=== PATIENT | female | born 2000 ===

== ENCOUNTER 2023-09-14 17:02 | Emergency (ER) | payer SELFPAY ==
[2023-09-14 17:57] VITALS: BP 150/81; PULSE 85; RESP 18; TEMP 37; O2SAT 100; BMI 35.7
--- NOTE | 2023-09-14 18:09 | ED.DENTAL ---
HPI - Dental/Oral General Chief complaint: Dental/Oral Stated complaint: right side tooth and head pain Time Seen by Provider: 09/14/23 18:09 Source: patient Mode of arrival: ambulatory Limitations: no limitations History of Present Illness HPI Narrative: 22-year-old female with history of poor dental care prsents today for right lower molar pain that radiates to the right ear intermittently x 3 months. Reports she has not seen a dentist or PCP for a while. No fevers, changes in voice, drooling, or sore throat. No SOB. No dysphagia. Related Data Previous Rx's Medication Instructions Recorded amoxicillin 875 mg-potassium 1 tab PO BID 10 days #20 tabs 09/14/23 clavulanate 125 mg tablet naproxen 500 mg tablet 500 mg PO BID PRN pain #14 tabs 09/14/23 Allergies Allergy/AdvReac Type Severity Reaction Status Date / Time No Known Allergies Allergy Verified 09/14/23 17:57 Review of Systems Review of Systems: Constitutional : No Fever, No Chills ENT/Mouth : No swallowing difficulty, no change in voice, positive dental pain, no jaw pain, no facial swelling Eyes: No Eye Pain, No Swelling Cardiovascular : No Chest Pain, No SOB Respiratory : No Cough, No Sputum Gastrointestinal : No Nausea, No Vomiting, No Diarrhea Genitourinary : No Dysuria Musculoskeletal : No Myalgias Skin : No rash Neuro : No Weakness, No Numbness, No Headache Yes all other systems are reviewed and are negative [facility] Past Medical History Attestation statement: The following information was validated with the patient. Source: old records reviewed and nursing notes reviewed Physical Exam Vital Signs: Vital Signs: Last Vital Signs Temp 98.6 F 09/14/23 17:57 Pulse 85 09/14/23 17:57 Resp 18 09/14/23 17:57 BP 150/81 H 09/14/23 17:57 Pulse Ox 100 09/14/23 17:57 O2 Del Method Room Air 09/14/23 17:57 BMI result Body Mass Index 35.7 vss Appearance: Alert. ?Oriented X3. ?No acute distress. Speaking in full sentences. Controlling secretions well. Head: ?Normocephalic, atraumatic, no step-offs or deformities Eyes: Pupils equal, round and reactive to light. ENT: Pharynx normal. Uvula midline, +Poor dentition throughout. +halitosis. +Fractured right lower back molar. No dental abscess. External ears normal, TMs normal bilaterally and EAC's normal. ?No pain with manipulation of external ears bilaterally. ?No mastoid tenderness. Neck: Normal inspection. ?Neck supple. CVS: Normal heart rate and rhythm. ?Pulses normal. Respiratory: No respiratory distress. ?Breath sounds normal. No stridor. Skin: Skin warm and dry. ?Normal skin color. ?Normal skin turgor. Extremities: No lower extremity edema. ?No calf ttp. ?5/5 strength to bilateral upper and lower extremities Neuro: Oriented X 3. ?No motor deficit. ?No sensory deficit. CN 2-12 intact Course Reevaluation(s) Reevaluation #1: Educated patient on diagnosis and treatment plan, answered all question, patient verbalizes understanding. At this time patient will be discharged home, advised to return with new or worsening symptoms. Educated on worrisome signs and symptoms and when to return. At this time I feel comfortable discharge home. Patient to follow-up with dentist tomorrow Time: 18:13 Medical Decision Making Medical Decision Making MDM Narrative: 22-year-old female presents with dental pain x3 months. At followed by PCP or dentist Physical examPharynx normal. Uvula midline, +Poor dentition throughout. +halitosis. +Fractured right lower back molar. No dental abscess. External ears normal, TMs normal bilaterally and EAC's normal. ?No pain with manipulation of external ears bilaterally. ?No mastoid tenderness. This is likely a fractured lower right molar with overlying caries, poor dentition. No signs of dental abscess, threat to airway, retropharyngeal, peritonsillar abscess. No signs of dental cellulitis, or Klaus's Plan discharge from the waiting room with Augmentin, dental follow-up. Educated patient on diagnosis and treatment plan, answered all question, patient verbalizes understanding. At this time patient will be discharged home, advised to return with new or worsening symptoms. Educated on worrisome signs and symptoms and when to return. At this time I feel comfortable discharge home. Differential Diagnosis Differential Diagnoses: The differential diagnosis associated with the presentation includes This is likely a fractured lower right molar with overlying caries, poor dentition. No signs of dental abscess, threat to airway, retropharyngeal, peritonsillar abscess. No signs of dental cellulitis, or Klaus's Admission/Observation Consideration of admission/observation: Escalation of care including admission/observation considered no indication Tests considered The following testing was considered but not selected: No signs of threat tear where abscess, no indication for CT scan Prescription Management I considered prescription management with: Antibiotic Discharge Plan Discharge Clinical Impression: Toothache Patient Disposition: Home, Self-Care Instructions: Toothache (ED) Additional Instructions: Take your medications as prescribed. If you were prescribed antibiotics today, it is important that you take your medication to their entirety, do not skip any doses, do not finish them early. Follow-up with your primary care provider this week. Return to the emergency department with new or worsening symptoms. Such as fevers, chills, chest pain, shortness of breath, nausea, vomiting, dizziness, headache, vision changes, lethargy In case of emergency call 911 Follow-up with dentist at [facility] call and schedule appointment tomorrow [phone] Prescriptions: New naproxen 500 mg tablet 500 mg PO BID PRN (Reason: pain) Qty: 14 0RF Rx Instructions: Take with food amoxicillin-pot clavulanate 875-125 mg tablet 1 tab PO BID 10 Days Qty: 20 0RF Referrals: Physician,None [Primary Care Provider] - 2 days [facility] [place]] - 1 day [facility] [place] Group] - 1 day
== END 2023-09-14 18:22 | disposition home or self-care (01) ==
PROVIDERS: Emergency Provider Emergency Medicine
DX: K08.9 Disorder of teeth and supporting structures, unspecified (principal)
CPT/HCPCS: 99282; 99283

== ENCOUNTER 2025-07-05 16:19 | Outpatient (REF) | payer SELFPAY ==
--- OUTSIDE RECORDS SUMMARY | 2025-07-05 09:30 | XMS_ITS | Encounter Summary ---
Author Organization [employer] Address [address] [facility] [address] [place] [address] Care Team Providers Care Urban Sociologist Name Role Phone Kaye Oakley MD Primary Care Pro vider Reason for Visit * Reason Comments pap Encounter Details Date Type Department Care Team (Latest Contact Info) Description 07/05/2025 9:30 AM EDT Procedure Visit [facility] [address] [place] [address] Yoanna Forbes CNM [address] [place] [address] Cervical cancer screening (Primary Dx); Encntr screen for infections w sexl mode of transmiss; Family planning counseling Social History Tobacco Use Types Packs/Day Years Used Date Smoking Tobacco: Never Passive Smoke Exposure: Never Smokeless Tobacco: Never Tobacco Cessation:Counseling Given: Not Answered Alcohol Use Standard Drinks/Week Comments Not Currently 0 (1 standard drink = 0.6 oz pur e alcohol) social Depression Answer Date Recorded Patient Health Questionnaire-9 Score 0 06/05/2025 Patient Health Questionnaire-9 Score 0 06/05/2025 Last PHQ-9: Questionnaire Data Not on file 0 06/05/2025 Housing Stability Answer Date Recorded What is your housing situation today? I have madeline sing 06/05/[address] you li ve. Do you have problems with any of the following? None of the above 06/05/2025 Food Insecurity Answer Date Recorded Within the past 12 months, y ou worried that your food would run out before you got money to buy more: Never True 06/05/2025 Within the past 12 months,th e food you bought just didn't last and you didn't have enough money to get more: Never True Transportation Answer Date Recorded In the past 12 months, has l ack of transportation kept you from medical appts, meetings, work or from getting things needed for daily living? No 06/05/2025 Utilities Answer Date Recorded In the past 12 months, has t he electric, gas, oil or water company threatened to shut off services in your home? No 06/05/2025 Depression Answer Date Recorded Patient Health Questionnaire-2 Score 0 06/05/2025 Internet Access Answer Date Recorded Internet Access Q1 Yes 06/05/2025 Internet Access Q2 Not on file 06/05/2025 Comments No Intention Date Recorded No desire to become (finding) 0 07/05/2025 Sex and Gender Information Value Date Recorded Sex Assigned at Female 05/25/2024 10:29 AM EDT Legal Sex Female 12:29 PM EDT Gender Identity Female 05/25/2024 10:29 AM EDT Sexual Orientation Straight 06/05/2025 10 :36 AM EDT documented as of this encounter Last Filed Vital Signs Vital Sign Reading Time Taken Comments Blood Pressure 120/78 07/05/2025 9:54 AM EDT Pulse 90 07/05/2025 9:54 AM EDT Temperature 36.9 C (98.4 F) 07/05/2025 9:54 AM EDT Respiratory Rate 16 07/05/2025 9:54 AM EDT Oxygen Saturation 98% 07/05/2025 9:54 AM EDT Inhaled Oxygen Concentration - - Weight 110 kg (243 lb) 07/05/2025 9:54 AM EDT Height - - Body Mass Index 36.95 06/05/2025 10:31 AM EDT documented in this encounter Progress Notes * Yoanna Forbes CNM - 07/05/2025 9:30 AM EDT Subjective Patient ID: Bisi Chavez is a 24 y.o. female who presents for pap. Per last visit note, last pap 06/2022 NIL/HPV 16 +. Started on NET progestin only pill for contraception. Notes occasional nausea, otherwise feels well. Would like to continue for now. Declines ACHES. STI testing ordered, needs to be collected. She will go to lab soon. Agrees to pap based STI testing today, vaginal sex. 1 AMAB partner x 1y, no safety concerns. Review of Systems Genitourinary: Positive for menstrual problem. Negative for dyspareunia, dysuria, frequency, genital sores, hematuria, pelvic pain, urgency, vaginal bleeding, vaginal discharge and vaginal pain. No abnormal pap, no abnormal bleeding, no breast pain, no breast mass, no nipple discharge Objective BP 120/78 (BP Location: Left arm, Patient Position: Sitting, BP Cuff Size: Adult) Pulse 90 Temp98.4 ??F (36.9 ??C) (Oral) Resp 16 Wt 243 lb (110 kg) LMP 07/02/2025 (Exact Date) SpO2 98% BMI 36.95 kg/m?? Physical Exam Doorperson Or Luggage Porter present: declines director of collections. Constitutional: Appearance: Normal appearance. Genitourinary: General: Normal vulva. Labia: Right: No rash, tenderness, lesion or injury. Left: No rash, tenderness, lesion or injury. Vagina: Normal. No signs of injury and foreign body. No vaginal discharge, erythema, tenderness, bleeding or lesions. Cervix: No cervical motion tenderness, discharge, friability, lesion, erythema, cervical bleeding or eversion. Uterus: Normal. Not enlarged and not tender. Adnexa: Right adnexa normal and left adnexa normal. Right: No mass, tenderness or fullness. Left: No mass, tenderness or fullness. Neurological: Mental Status: She is alert. Psychiatric: Mood and Affect: Mood normal. Behavior: Behavior normal. Assessment/Plan Diagnoses and all orders for this visit: Cervical cancer screening - Pap Smear Will repeat in 1 year as precaution if normal today. Will contact with results and plan. Encntr screen for infections w sexl mode of transmiss - STI testing add on (NG, CT, Trich) Pap based STI testing today. She will get serum labs as ordered. Family planning counseling She would like to continue oral contraceptive pill for now. Try taking with a small meal. Let me know if not helpful, other symptoms noted or interested in other options. documented in this encounter Plan of Treatment Upcoming Encounters Date Type Department Care Team ([facility] st Contact Info) Description 07/27/2025 10:15 AM EDT Office Visit [facility] [address] [place] [address] Lee Payan 08/08/2025 9:45 AM EDT Office Visit [facility] [address] [place] [address] Kaye Oakley MD [address] [place] [address] 09/25/2025 9:00 AM EST Office Visit [facility] OPT[facility] [address] [place] [address] Yolanda Bolden, OD [address] [place] [address] Scheduled Orders Name Type Priority Associated Diagnoses Orde r Schedule Pap Smear Pathology and Cytology Routine Cervical cancer screening Ordered: 07/05/2025 STI testing add on (NG, CT, Trich) Pathology and Cytology Routine Encntr screen for infections w sexl mode of transmiss Ordered: 07/05/2025 documented as of this encounter Visit Diagnoses Diagnosis Cervical cancer screening- Primary Screening for malignant neoplasm of the cervix Encntr screen for infections w sexl mode of transmiss Family planning counseling Other general counseling and advice for contraceptive management documented in this encounter Additional Health Concerns Assessment Noted Time PHQ-9 Depression Total Score: 0 06/05/20 10:34 AM EDT documented as of this encounter Care Teams Urban Sociologist Relationship Specialty Start Date End Date Kaye Oakley MD [address] [place] [phone] PCP - General Internal Medicine 07/04/25 documented as of this encounter
--- OUTSIDE RECORDS SUMMARY | 2025-07-05 17:19 | XMS_ITS | Encounter Summary ---
Author Organization [employer] Address [address] [facility] [address] [place] [address] Care Team Providers Care Clinical Registered Nurse Name Role Phone Kaye Oakley MD Primary Care Pro vider Encounter Details Date Type Department Care Team (Latest Contact Info) Description 07/05/2025 Travel Social History Tobacco Use Types Packs/Day Years Used Date Smoking Tobacco: Never Passive Smoke Exposure: Never Smokeless Tobacco: Never Alcohol Use Standard Drinks/Week Comments Not Currently 0 (1 standard drink = 0.6 oz pur e alcohol) social Depression Answer Date Recorded Patient Health Questionnaire-9 Score 0 06/05/2025 Patient Health Questionnaire-9 Score 0 06/05/2025 Last PHQ-9: Questionnaire Data Not on file 0 06/05/2025 Housing Stability Answer Date Recorded What is your housing situation today? I have madeline saba 06/05/[address] you li [...] Q2 Not on file 06/05/2025 Comments No Sex and Gender Information Value Date Recorded Sex Assigned at Female 05/25/2024 10:29 AM EDT Legal Sex Female 12:29 PM EDT Gender Identity Female 05/25/2024 10:29 AM EDT Sexual Orientation Straight 06/05/2025 10 :36 AM EDT documented as of this encounter Plan of Treatment Upcoming Encounters Date Type Department Care Team (Late st Contact Info) Description 07/27/2025 10:15 AM EDT Office Visit [facility] ADULT [facility] [address] [place] [address] Lee Payan 08/08/2025 9:45 AM EDT Office Visit [facility] MED[facility] [address] [place] [address] Kaye Oakley MD [address] [place] [phone] 09/25/2025 9:00 AM EST Office Visit [facility] OPTOMETRY [address] [place] [address] Tarka, Yolanda, OD [address] [place] [address] documented as of this encounter Visit Diagnoses Not on filedocumented in this encounter Additional Health Concerns Assessment Noted Time PHQ-9 Depression Total Score: 0 06/05/20 10:34 AM EDT documented as of this encounter Care Teams Clinical Registered Nurse Relationship Specialty Start Date End Date Kaye Oakley MD [address] [place] [phone] PCP - General Internal Medicine 07/04/25 documented as of this encounter
--- OUTSIDE RECORDS SUMMARY | 2025-07-05 17:19 | XMS_ITS | Clinical Summary ---
Author Organization [employer] Address [address] [facility] [place] [address] Care Team Providers Care Marketing Traffic Manager Name Role Phone Kaye Oakley MD Primary Care Pro vider Allergies No known active allergies Medications norethindrone (Micronor) 0.35 MG tablet Take 1 tablet (0.35 mg) by mouth Once per day. 28 tablet 2 06/05/2025 Active HPV 9-valent (Gardasil-9) suspension prefilled syringe vaccine prefilled syringe Inject 0.5 mL into the muscle 1 (one) time for 1 dose. To start series 0.5 mL 06/05/2025 Active Problems Problem Noted Date Diagnosed Date Health care maintenance 06/05/2025 Obesity (BMI 35.0-39.9 without comorbidity) 05/18 Encounters Date Type Department Care Team Description 07/05/2025 9:30 AM EDT Procedure Visit [facility] [address] [place] [phone] Yoanna Forbes CNM Cervical cancer screening (Primary Dx); Encntr screen for infections w sexl mode of transmiss; Family planning counseling 07/05/2025 Travel 07/04/2025 Telephone [facility] [address] [place] [phone] Yoanna Forbes CNM chart prep 06/28/2025 Travel 06/05/2025 10:15 AM EDT Office Visit [facility] [address] [place] [phone] Kaye Oakley MD Health care maintenance (Primary Dx); Dietary counseling; Exercise counseling; Obesity (BMI 35.0-39.9 without comorbidity); Encounter for immunization 06/05/2025 Travel 06/04/2025 Telephone [facility] [address] [place] [address] Kaye Oakley MD Insurance 06/04/2025 Telephone [facility] [address] [place] [address] Kaye Oakley MD Chart Prep 05/29/2025 Patient Outreach [facility] [address] [place] [address] Jorgito Paulson MD Pre-visit Planning (Pre visit planning LVM ) 05/29/2025 Travel 04/10/2025 Refill [facility] [address] [place] [address] Jose Miguel Mac from Last 3 Months Immunizations Immunization Administration Dates Next Due Tdap 06/05/2025 Family History Medical History Relation Name Comments DM2 Maternal Grandfather DM2 Mother Breast cancer Neg Hx Colon cancer Neg Hx Ovarian cancer Neg Hx Relation Name Status Comments Maternal Grandfather Mother Social History Tobacco Use Types Packs/Day Years [...] your housing situation today? I have madeline walter 06/05/[address] you li [...] Orientation Straight 06/05/2025 10 :36 AM EDT Last Filed Vital Signs Vital Sign Reading Time Taken Comments Blood Pressure 120/78 07/05/2025 9:54 AM EDT Pulse 90 07/05/2025 9:54 AM EDT Temperature 36.9 C (98.4 F) 07/05/2025 9:54 AM EDT Respiratory Rate 16 07/05/2025 9:54 AM EDT Oxygen Saturation 98% 07/05/2025 9:54 AM EDT Inhaled Oxygen Concentration - - Weight 110 kg (243 lb) 07/05/2025 9:54 AM EDT Height 172.7 cm (5' 8 ) 06/05/2025 10:31 AM EDT Body Mass Index 36.95 06/05/2025 10:31 AM EDT Plan of Treatment Upcoming Encounters Date Type Department Care Team (Late st Contact Info) Description 07/27/2025 10:15 AM EDT Office Visit [facility] ADULT D[facility]AL [address] [place] [address] Lee Payan 08/08/2025 9:45 AM EDT Office Visit [facility] MED[facility] [address] [place], [place] [phone] Kaye Oakley MD [address] [place], [place] [phone] 09/25/2025 9:00 AM EST Office Visit [facility] OPTOMETRY [address] [place] [phone] Yolanda Bolden, OD [address] [place] [address] Health Maintenance Due Date Last Done Comments HIV Screening 2000 Lipid Panel 2000 HPV Vaccines (1 - 3-dose series) 2015 Hepatitis C Screening 2018 Hepatitis B Vaccines (1 of 3 - 19+ 3-dose series) 2019 Pap Smear 2021 COVID-19 Vaccine (2023-2 5 season) 2025 Influenza Vaccine (#1) 2025 Dental X-Ray: Bitewings 07/11/2025 07/10/2024 Dental Oral Exam 07/25/2025 01/22/2025, 07/10/2024 Dental Prophylaxis 07/25/2025 01/22/2025, 07/10/2024 Alcohol/Substance Use Screening 06/05/2026 06/05/2025 Depression Screening 06/05/2026 06/05/2025, 06/05/2025 Disability Screening 06/05/2026 06/05/2025 SDOH Screening 06/05/2026 06/05/2025 Tobacco Screening 06/05/2026 06/05/2025 Family Planning (PISQ) 07/05/2026 07/05/2025 Dental X-Ray: Full Mouth 08/03/2027 024, 07/10/2024 DTaP/Tdap/Td Vaccines (2 - T d or Tdap) 06/05/2035 06/05/2025 Zoster Vaccines (1 of 2) 2050 RSV Patients and Patients Aged 60 years or older (1 - 1-dose 75+ series) 2075 HIB Vaccines Aged Out No longer eligi ble based on patient's age to complete this topic Hepatitis A Vaccines Aged Out No long er eligible based on patient's age to complete this topic IPV Vaccines Aged Out No longer eligi ble based on patient's age to complete this topic Meningococcal B Vaccine Aged Out No l onger eligible based on patient's age to complete this topic Meningococcal Vaccine Aged Out No susan curtis eligible based on patient's age to complete this topic Pneumococcal Vaccine: Pediatrics (0 to 5 Years) and At-Risk Patients (6 to 49) Years Aged Out No longer eligible b ased on patient's age to complete this topic RSV under 20 months Aged Out No longe r eligible based on patient's age to complete this topic Rotavirus Vaccines Aged Out No longer eligible based on patient's age to complete this topic Procedures Procedure Name Priority Date/Time Associated Diagnosis Comments POCT , URINE Routine 06/05/2025 11:17 AM EDT Encounter for immunization Full PROPHYLAXIS - ADULT Routine 01/22/2025 11:00 AM EDT Encounter for dental examination PERIODIC ORAL EVALUATION - ESTABLISHED PATIENT Routine 01/22/2025 11:00 AM EDT Encounter for dental examination PANORAMIC RADIOGRAPHIC IMAGE Routine 08/02/2024 2:00 PM EDT INTRAORAL - COMPLETE SERIES OF RADIOGRAPHIC IMAGES Routine 07/10/2024 8:00 AM EDT from Last 3 Months or Most Recently Relevant to Health Maintenance Results * POCT Urine (06/05/2025 11:17 AM EDT) Preg Test, Ur Negative Negative, Indeterminate, None Detected, Invalid, Specimen unsatisfactory for evaluation, Weakly Positive, 2+ QC Media Lot # [id number] Lot# Expiration Date [id number] Urine 06/05/2025 11:1 7 AM EDT Kaye Davis MD POINT OF CARE BRADY T ENTER/EDIT ORDERABLES Final Result from Last 3 Months Insurance [facility] F[facility] MEDICAID LIMITED ADULT DENTAL - [facility]SN FULL (MEDICAID) Care Teams Marketing Traffic Manager Relationship Specialty Start Date End Date Kaye Oakley MD [address] [place] [phone] PCP - General Internal Medicine 07/04/25
--- OUTSIDE RECORDS SUMMARY | 2025-07-05 17:19 | XMS_ITS | Encounter Summary ---
Author Organization [employer] Address [address] [facility] [address] [place] [address] Care Team Providers Care President [employer] Name Role Phone Kaye Oakley MD Primary Care Pro vider Reason for Visit * Reason Onset Date Comments chart prep 07/04/2025 Encounter Details Date Type Department Care Team ([facility] st Contact Info) Description 07/04/2025 Telephone [facility] MEDICINE [address] [place] [address] Yoanna Forbes CN [address] [place] [address] chart prep Social History Tobacco Use Types Packs/Day Years Used Date Smoking Tobacco: Never Passive Smoke Exposure: Never Smokeless Tobacco: Never Alcohol Use Standard Drinks/Week Comments Yes 0 (1 standard drink = 0.6 oz [...] Access Q2 Not on file 06/05/2025 Comments Unknown Sex and Gender Information Value Date Recorded Sex Assigned at Female 05/25/2024 10:29 AM EDT Legal Sex Female 12:29 PM EDT Gender Identity Female 05/25/2024 10:29 AM EDT Sexual Orientation Straight 06/05/2025 10 :36 AM EDT documented as of this encounter Miscellaneous Notes * Telephone Encounter - Svitlana Ly MA - 07/04/2025 10:22 AM EDT Chart Prep Labs: not applicable Images: not applicable Referrals: not applicable Vaccines due: Covid, Flu, Hep B, and HPV Screenings: pap smear and HIV screening Overdue care gaps: Not applicable documented in this encounter Plan of Treatment Upcoming Encounters Date Type Department Care Team (Late st Contact Info) Description 07/27/2025 10:15 AM EDT Office Visit [facility] CHC ADULT DENTAL [address] [place] [address] Lee Payan 08/08/2025 9:45 AM EDT Office Visit [facility] MEDICINE [address] [place] [address] Kaye Oakley MD [address] [place] [address] 09/25/2025 9:00 AM EST Office Visit [facility] OPTOMETRY [address] [place] [address] Yolanda Bolden, OD [address] [place] [address] documented as of this encounter Visit Diagnoses Not on filedocumented in this encounter Additional Health Concerns Assessment Noted Time PHQ-9 Depression Total Score: 0 06/05/20 10:34 AM EDT documented as of this encounter Care Teams President [employer] Relationship Specialty Start Date End Date Kaye Oakley MD [address] [place] [phone] PCP - General Internal Medicine 07/04/25 documented as of this encounter
--- OUTSIDE RECORDS SUMMARY | 2025-07-05 17:19 | XMS_ITS | Encounter Summary ---
Author Organization [employer] Address [address] [place] [address] [address] [address] Care Team Providers Care Precision Assembler Name Role Phone Kaye Oakley MD Primary Care Pro vider Reason for Visit * Reason Onset Date Comments Appointment Request 01/04/2025 Encounter Details Date Type Department Care Team ([facility] st Contact Info) Description 01/04/2025 Telephone [facility] MEDICINE [address] [place] [address] Jorgito Paulson MD [address] [place] [address] Appointment Request Social History Tobacco Use Types Packs/Day Years Used Date Smoking Tobacco: Never Passive Smoke Exposure: Never Smokeless Tobacco: Never Comments Unknown Sex and Gender Information Value Date Recorded Sex Assigned at Female 05/25/2024 10:29 AM EDT Legal Sex Female 12:29 PM EDT Gender Identity Female 05/25/2024 10:29 AM EDT Sexual Orientation Straight 06/05/2025 10 :36 AM EDT documented as of this encounter Miscellaneous Notes * Telephone Encounter - Melinda Mello - 01/04/2025 10:58 AM EDT Patient added to [facility] New Patient wait list as 01-04-2025 * Telephone Encounter - Kevin Rosen - 01/04/2025 10:33 AM EDT TC from caller requesting NEW PATIENT visit . DX : None Medical Concern: Period Concerns Insurance name : [facility] Location : No Preference. Demographic information updated Contact pt at [phone] documented in this encounter Plan of Treatment Upcoming Encounters Date Type Department Care Team (Late st Contact Info) Description 07/27/2025 10:15 AM EDT Office Visit [facility] CHC ADULT DENTAL [address] [place] [address] Lee Payan 08/08/2025 9:45 AM EDT Office Visit [facility] MEDICINE [address] [place] [address] Kaye Oakley MD [address] [place] [address] 09/25/2025 9:00 AM EST Office Visit [facility] OPTOMETRY [address] [place] [address] Yolanda Bolden, OD [address] [place] [address] documented as of this encounter Visit Diagnoses Not on filedocumented in this encounter Care Teams Precision Assembler Relationship Specialty Start Date End Date Kaye Oakley MD [address] [place] [phone] PCP - General Internal Medicine 07/04/25 documented as of this encounter
[2025-07-09 17:43] LABS: C. trachomatis RNA TMA NOT DETECTED (NOT DETECTED); N. gonorrhoeae RNA TMA NOT DETECTED (NOT DETECTED); Trichomonas (NAAT) NOT DETECTED (NOT DETECTED)
== END 2025-07-05 16:20 | disposition home or self-care (01) ==
LOC: HO.HHCLNP 16:19
PROVIDERS: Visit Provider Advanced Practice Midwife
DX: Z12.4 Encounter for screening for malignant neoplasm of cervix (principal); Z11.3 Encounter for screening for infections with a predominantly sexual mode of transmission; Z11.8 Encounter for screening for other infectious and parasitic diseases; Z11.51 Encounter for screening for human papillomavirus (HPV)
CPT/HCPCS: 87491; 87591; 87626; 87661; 88175

== ENCOUNTER 2025-07-31 09:38 | Outpatient (REF) | payer MEDICAID, SELFPAY ==
--- OUTSIDE RECORDS SUMMARY | 2025-07-27 10:15 | XMS_ITS | Encounter Summary ---
Author Organization [employer] Address [address] [facility] [address] [place] [address] Care Team Providers Care Drug Safety Scientist Name Role Phone Kaye Oakley MD Primary Care Pro vider Reason for Visit * Reason Comments Routine Cleaning Dental Exam Encounter Details Date Type Department Care Team (Late st Contact Info) Description 07/27/2025 10:15 AM EDT Office Visit [facility] ADULT DENTAL [address] [place] [address] Lee Payan Dental calculus (Primary Dx) Social History Tobacco Use Types Packs/Day Years [...] Sign Reading Time Taken Comments Blood Pressure 134/74 07/27/2025 10:17 AM EDT Pulse 68 07/27/2025 10:17 AM EDT Temperature - - Respiratory Rate - - Oxygen Saturation - - Inhaled Oxygen Concentration - - Weight - - Height - - Body Mass Index - - documented in this encounter Progress Notes * Jose Manuel Dumont DDS - 07/27/2025 10:15 AM EDT Dental procedures in this visit D1110 - PROPHYLAXIS - ADULT (Completed) Service provider: Lee Payan Billing provider: Najma Santo DDS [id number] - ORAL HYGIENE INSTRUCTIONS (Completed) Service provider: Lee Payan [employer] provider: Najma Santo DDS [id number] - CASE PRESENTATION, DETAILED AND EXTENSIVE TREATMENT PLANNING (Completed) Service provider: Lee Payan Billing provider: Najma Santo DDS [id number] - BITEWINGS - 4 RADIOGRAPHIC IMAGES (Completed) Service provider: Lee Payan Billing provider: Najma Santo DDS [id number] - INTRAORAL - PERIAPICAL FIRST RADIOGRAPHIC IMAGE (Completed) Service provider: Lee Payan Billing provider: Najma Santo DDS [id number] - INTRAORAL - PERIAPICAL EACH ADDITIONAL RADIOGRAPHIC IMAGE (Completed) Service provider: Lee Payan [employer] provider: Najma Satno DDS [id number] - PERIODIC ORAL EVALUATION - ESTABLISHED PATIENT (Completed) Service provider: Jose Manuel Dumont DDS Billing provider: Najma Santo DDS Patient ID: Bisi Chavez is a 24 y.o. female. Time Out: Date: 07/27/2025 Location: [facility] Tooth: Maxilla and Mandible Procedure: Exam Verified the above with patient, camp assistant, and provider. Confirmed via patient's chart, intraorally and by radiographs. Operator Helper: Yes. Language: Belgian. Operator Helper's Name: Jose Manuel Dumont DDS 24 y.o. years old female presents for a periodic examination done by Dr. Jose Manuel Dumont DDS CONSENT FORM INITIALED & SIGNED BY THE PATIENT AND COUNTER SIGNED BY Dr. Jose Manuel Dumont DDS Chief Complaint: I'm here for an exam. I'm had discomfort on of upper left side for over a month. It gets worse when I have cold liquids or solids. Medical History: Patient does not report any changes in health issues that could alter the Treatment Plan. Medical consult / medical clearance needed: No RAMPART: Pain: Yes. Upper Left Posterior Area. See Tooth #14 Duration: more than one month Scale of pain from 1 - 10: 5 Aggravating factors: Cold liquids or foods Pain radiating: Yes Postural variation: No Allergies: Reviewed in EHR Medications: Reviewed in EHR Vital signs: Blood pressure 134/74, pulse 68, last menstrual period 06/26/2025. Habits: Smoking: NA Drinking: Social Brushing: Yes Flossing: No. Uses Flosspick. Cancer screening: Extra-oral: WNL Intraoral: WNL Extra-oral examination TMJ Deviation - No Clicking - No Tenderness - No Facial symmetry - Symmetrical Lymph nodes - WNL Cheeks - WNL Intraoral examination Soft tissues - WNL Palate - WNL Tongue - WNL Buccal mucosa - WNL Floor of mouth - WNL Vestibules - WNL Glands - WNL Duct area - WNL Oropharynx - WNL Gingiva Color - [place] Contour - Smooth Recession - Yes Consistency - Firm Texture - Thin Bleeding on probing - N/A Radiographs Full Mouth X-rays taken on: 07-10-2024 Quality are of diagnostic value and appropriate for radiographic analysis? : Yes Radiograph interpretation Thickened PDL on: WNL Abnormal root resorption: NO Horizontal Bone Resorption: NO Abnormal root formation: NO Vertical Bone Loss: NO Periodontal diagnosis: Gingivitis Hard tissue exam Missing - as charted Plaque - YES Calculus - YES Abfraction - No Mobility - no Furcation - no Occlusion Overbite (mm): 3 mm Overjet (mm): 3 mm Diastema: 0 mm Right Molar Occlusion: Class 3 Left Molar Occlusion: Class 1 Right Canine Occlusion: Class 1 Left Canine Occlusion: Class 1 Midline: Centered Anterior/Posterior crossbite: No Arches: Wide Wear Facets: Yes DIAGNOSIS Findings, risks, benefits and alternatives discussed with pt. Reviewed radiographs with pt. Pointedout areas of radiographic calculus. Discussed sequelae of bacteria on gingiva and underlying bone. - Advised increased frequency of brushing and flossing. - Recommended prophy, OHI, and RCT #14. TREATMENT PLAN Phase 1 - Prophy + OHI Phase 2 - Tooth #14 RCT, Post, Baxter Phase 3 - Chadwick #3 Phase 4 - Recare Patient agrees with treatment plan. Patient satisfied, dismissed in stable condition. NV: RCT #14 Provider: Dr. Jose Manuel Dumont DDS Dental Four Roll Calender Operator: Arron Martinez Supervising Dentist: Dr. Santo * Lee Payan - 07/27/2025 10:15 AM EDT Patient ID: Bisi Chavez is a 24 y.o. female. Time Out: Timeout Date: 07/27/25, Timeout Time: 1018 Location: [facility] Tooth: Maxilla and Mandible Procedure: Exam, X-rays, and Prophylaxis Verified the above with patient, camp assistant, and provider. Confirmed via patient's chart, intraorally and by radiographs. Operator Helper: not applicable Medical Hx: Vitals: Blood pressure 134/74, pulse 68, last menstrual period 06/26/2025. Medications, Med Hx reviewed with patient and updated in chart. Treatment Provided Dental procedures in this visit D1110 - PROPHYLAXIS - ADULT (Completed) Service provider: Lee Griggs provider: Najma Santo DDS D1330 - ORAL HYGIENE INSTRUCTIONS (Completed) Service provider: Lee Griggs provider: Najma Santo DDS [id number] - CASE PRESENTATION, DETAILED AND EXTENSIVE TREATMENT PLANNING (Completed) Service provider: Lee Griggs provider: Najma Santo DDS D0274 - BITEWINGS - 4 RADIOGRAPHIC IMAGES (Completed) Service provider: Lee Payan Billing provider: Najma Santo DDS [id number] - INTRAORAL - PERIAPICAL FIRST RADIOGRAPHIC IMAGE (Completed) Service provider: Lee Payan Billing provider: Najma Santo DDS [id number] - INTRAORAL - PERIAPICAL EACH ADDITIONAL RADIOGRAPHIC IMAGE (Completed) Service provider: Lee Payan Billing provider: Najma Santo DDS Instruments Used: Hand Scalers and Prophy angle Fluoride: N/A Oral Cancer Screening: No lesions Head/Neck Exam: No Lesions Calculus: None Plaque: Light and Localized Stain: Light and Localized Bleeding: None Gingiva: Healthy and Perio Charting Completed [place]: Good Perio Chart: Completed Oral hygiene instructions provided to patient including brushing technique and flossing. Recommendations: Rochert two times daily, modified mario technique, Floss daily Recall Frequency: 6 mo NV: [email or web address] Hygienist: Lee Payan RDH * Najma Santo DDS - 07/27/2025 10:15 AM EDT I have reviewed the documentation and dental procedures completed by the rendering provider, LARISA Mendiola, and approve their chart entries for this visit. LARISA Agrawal DDS documented in this encounter Plan of Treatment Upcoming Encounters Date Type Department Care Team (Late st Contact Info) Description 08/08/2025 9:45 AM EDT Office Visit [facility] MEDICINE [address] [place] [address] Kaye Oakley MD [address] [place] [address] 08/16/2025 3:00 PM EDT Office Visit [facility] CHC ADULT DENTAL [address] [place], [place] [phone] Jose Miguel Mac [address] [place] [address] 08/30/2025 2:00 PM EST Nutrition [facility] CHC DIABETES/NTRN [address] [place] [address] TuckerDahlia browne, RD [address] [place] [address] 09/25/2025 9:00 AM EST Office Visit [facility] OPTOMETRY [address] [place] [address] Tarka, Yolanda, OD [address] [place] [address] Scheduled Orders Name Type Priority Associated Diagnoses Orde r Schedule 3 L 3 L RESIN-BASED COMPOSITE - 1 SURF, POSTERIOR Dental Routine [address] arting 07/27/2025 14 14 ENDODONTIC THERAPY, MOLAR TOOTH Dental Routine [address] arting 07/27/2025 14 14 PREFABRICATED POST AND CORE IN ADDITION TO CROWN Dental Routine [address] arting 07/27/2025 14 14 CROWN - PORCELAIN/CERAMIC Dental Routine 1 Occurrences starting 07/27/2025 CROWN PREP Dental Routine 1 Occurrences starting 07/27/2025 documented as of this encounter Procedures Procedure Name Priority Date/Time Associated Diagnosis Comments PROPHYLAXIS - ADULT Routine 07/27/2025 1 0:15 AM EDT PERIODIC ORAL EVALUATION - ESTABLISHED PATIENT Routine 07/27/2025 10:15 AM EDT ORAL HYGIENE INSTRUCTIONS Routine 2024 10:15 AM EDT INTRAORAL - PERIAPICAL FIRST RADIOGRAPHIC IMAGE Routine 07/27/2025 10:15 AM EDT INTRAORAL - PERIAPICAL EACH ADDITIONAL RADIOGRAPHIC IMAGE Routine 07/27/2025 10:15 AM EDT CASE PRESENTATION, DETAILED AND EXTENSIVE TREATMENT PLANNING Routine 07/27/2025 10:15 AM EDT BITEWINGS - 4 RADIOGRAPHIC IMAGES Routine 07/27/2025 10:15 AM EDT documented in this encounter Visit Diagnoses Diagnosis Dental calculus- Primary Accretions on teeth documented in this encounter Additional Health Concerns Assessment Noted Time PHQ-9 Depression Total Score: 0 06/05/20 25 10:34 AM EDT documented as of this encounter Care Teams Drug Safety Scientist Relationship Specialty Start Date End Date Kaye Oakley MD [address] [place] [phone] PCP - General Internal Medicine 07/04/25 documented as of this encounter
--- OUTSIDE RECORDS SUMMARY | 2025-07-31 10:47 | XMS_ITS | Clinical Summary ---
Author Organization [employer] Address [address] [place] [address] 7[place], [place] [address] Care Team Providers Care Refinery Operator Light Ends Recovery Name Role Phone Kaye Oakley MD Primary Care Pro vider Allergies No known active allergies Medications norethindrone (Micronor) 0.35 MG tablet Take 1 tablet (0.35 mg) by mouth Once per day. 28 tablet 2 06/05/2025 Active Active Problems Problem Noted Date Diagnosed Date Health care maintenance 06/05/2025 Obesity (BMI 35.0-39.9 without comorbidity) 05/18 Encounters Date Type Department Care Team Description 07/27/2025 10:15 AM EDT Office Visit [facility] ADULT DENTAL [address] [place] [address] e[place] Dental calculus (Primary Dx) 07/12/2025 Results Follow-Up [address] [phone] Mandy Armstrong CNM HPV DNA, Low/High Risk 07/05/2025 9:30 AM EDT Procedure Visit [address] [phone] Mandy Armstrong CNM Cervical cancer screening (Primary Dx); Encntr screen for infections w sexl mode of transmiss; Family planning counseling 07/05/2025 Orders Only [address] [phone] Mandy Armstrong CNM 07/05/2025 Travel 07/04/[address] [phone] Mandy Armstrong CNM chart prep 06/28/2025 Travel 06/05/2025 10:15 AM EDT Office Visit [address] [address] Kaye Oakley MD Health care maintenance (Primary Dx); Dietary counseling; Exercise counseling; Obesity (BMI 35.0-39.9 without comorbidity); Encounter for immunization 06/05/2025 Travel 06/04/[address] [address] Kaye Oakley MD Insurance 06/04/[address] [address] Kaye Oakley MD Chart Prep 05/29/2025 Patient Outreach [address] [address] Jorgito Paulson MD Pre-visit Planning (Pre visit planning LVM ) 05/29/2025 Travel from Last 3 Months Immunizations Immunization Administration [...] Pulse 68 07/27/2025 10:17 AM EDT Temperature 36.9 C (98.4 F) [...] Description 08/08/2025 9:45 AM EDT Office Visit [facility] MEDICINE [address] [place], [place] [phone] Kaye Oakley MD [address] [place] [address] 08/16/2025 3:00 PM EDT Office Visit [facility] ADULT DENTAL [address] [place] [address] Estefania Jose Miguel [address] [place] [address] 08/30/2025 2:00 PM EST Nutrition [facility] CHC DIABETES/NTRN [address] [place] [address] Dahlia Granados, RD [address] [place] [address] 09/25/2025 9:00 AM EST Office Visit [facility] OPTOMETRY [address] [place], [place] [phone] TarYolanda cantrell, OD [address] [place] [address] Health Maintenance Due Date Last Done Comments HIV Screening 2000 Lipid Panel 2000 HPV Vaccines (1 - 3-dose series) 2015 Hepatitis C Screening 2018 Hepatitis B Vaccines (1 of 3 - 19+ 3-dose series) 2019 COVID-19 Vaccine ( - 2023-2 5 season) 2025 Influenza Vaccine (#1) 2025 Dental Oral Exam 01/26/2026 07/27/2025, 01/22/2025, 07/10/2024 Dental Prophylaxis 01/26/2026 07/27/2025, 01/22/2025, 07/10/2024 Alcohol/Substance Use Screening 06/05/2026 06/05/2025 Depression Screening 06/05/2026 06/05/2025, 06/05/2025 Disability Screening 06/05/2026 06/05/2025 SDOH Screening 06/05/2026 06/05/2025 Family Planning (PISQ) 07/05/2026 07/05/2025 HPV/Cotest 07/05/2026 07/05/2025 Pap Smear 07/05/2026 07/05/2025 Tobacco Screening 07/27/2026 07/27/2025 Dental X-Ray: Bitewings 07/28/2026 07/27/20 25, 07/10/2024 Dental X-Ray: Full Mouth 08/03/2027 024, 07/10/2024 [...] Procedure Name Priority Date/Time Associated Diagnosis Comments PERIODIC ORAL EVALUATION - ESTABLISHED PATIENT Routine 07/27/2025 10:15 AM EDT INTRAORAL - PERIAPICAL FIRST RADIOGRAPHIC IMAGE Routine 07/27/2025 10:15 AM EDT BITEWINGS - 4 RADIOGRAPHIC IMAGES Routine 07/27/2025 10:15 AM EDT CASE PRESENTATION, DETAILED AND EXTENSIVE TREATMENT PLANNING Routine 07/27/2025 10:15 AM EDT ORAL HYGIENE INSTRUCTIONS Routine 07/27/2025 10:15 AM EDT PROPHYLAXIS - ADULT Routine 07/27/2025 1 0:15 AM EDT INTRAORAL - PERIAPICAL EACH ADDITIONAL RADIOGRAPHIC IMAGE Routine 07/27/2025 10:15 AM EDT CHLAMYDIA/N. GONORRHOEAE AND T. VAGINALIS RNA, QUAL,TMA Routine 07/05/2025 10:00 AM EDT Encntr screen for infections w sexl mode of transmiss PAP SMEAR Routine 07/05/2025 10:00 AM EDT Cervical cancer screening HPV DNA, LOW/HIGH RISK Routine 07/05/2025 10:00 AM EDT POCT , URINE Routine 06/05/2025 11:17 AM EDT Encounter for immunization PANORAMIC RADIOGRAPHIC IMAGE Routine 08/02/2024 2:00 PM EDT from Last 3 Months or Most Recently Relevant to Health Maintenance Results * STI testing add on (NG, CT, Trich) (07/05/2025 10:00 AM EDT) Trichomonas (NAAT) NOT DETECTED NOT DETECTED [facility] Comment:The analytical perfo rmance characteristics of thisassay have been determined by [employer]. Themodifications have not been cleared or approved bythe FDA. This assay has been validated pursuant to theCLIA regulations and is used for clinical purposes.For additional information, please refer tohttp://education.Games2Win/faq/Trichomonastma(This link is being provided for information/educational purposes only.)THIS TEST WAS PERFORMED AT:[facility] [place] [id number] OWUSU MD CTNG Ref Lab NOT DETECTED NOT DETECTED [facility] NG Ref Lab NOT DETECTED NOT DETECTED [facility] ThinPrep vial Cervix uteri structure / Unknown 07/05/2025 10:00 AM EDT 07/06/2025 7:10 AM EDT Narrative [facility] - 07/09/2025 5:43 PM EDT Collection Date: [id number] by: TIMO Bob: Cervix us Mandy [facility] CYTOLOGY ORDERABLES F inal Result [facility] [address] [place] [phone] * (ABNORMAL) HPV DNA, Low/High Risk (07/05/2025 10:00 AM EDT) HPV High Risk Positive(A) Negative [facility] HPV Genotype 16 Negative Negative [facility] HPV Genotype 18 Negative Negative [facility] Comment:HPV testing performe d at [facility] (CLIA#[id number]), [address] [place] [id number].Testing for HPV was performed using the Doron JENN 6800system. The presence of HPV in the female genital tract isassociated with a number of diseases, including cervicalcarcinoma. The HPV DNA high risk pool tests for HPV 31, 33,35, 39, 45, 51, 52, 56, 58, 59, 66 and 68. The testing forHPV 16 and 18 genotypes has also been performed. A positiveresult indicates detection of nucleic acid sequences fromone or more subtypes, whereas a negative result indicatessuch sequences were not detected. 07/05/2025 10:0 0 AM EDT 07/06/2025 7:10 AM EDT Mandy [facility] BLOOD ORDERABLES Shazia l Result [facility] [address] [place] [address] [phone] * Pap Smear (07/05/2025 10:00 AM EDT) Swab Cervix uteri structure / Unknown 07/05/2025 10:00 AM EDT 07/06/2025 7:10 AM EDT Blanca [facility] - 07/11/2025 9:49 AM EDT ----- ------- Name: Bisi Chavez Age/Sex: 24/F : 2000 Unit#: [id number] Attend Dr: MANDY ARMSTRONG CNM Re07/05/25 Status: [facility] REF Location: [facility] Disch: ----- ------- SPEC : [id number] RECD: 07/06/25 STATUS: ALEXANDER CHU NUM: [id number] RALF: 07/05/[address] [facility] [address]: MANDY ARMSTRONG [facility] ENTERED: 07/06/25 SP TYPE: Pap Smr OTHR DR: ORDERED: Pap Smear, PAP path review Interpretation ABNORMAL PAP TEST. Satisfactory for evaluation, with atypical squamous cells of undetermined significance (ASC-US). HPV High Risk: Positive HPV Genotyping 16: Negative HPV Genotyping 18: Negative Clinical Information LMP: Unknown date Previous PAP test: 06/2022, negative HPV 16+ Other history: Cervical cancer screening Material Received ThinPrep-Cervical PAP Disclaimer As of August 09, 2024, the technical services to include automated prescreening performed by the ThinPrep Imaging System, PAP screening and HPV testing will be performed at [facility] (CLIA #[id number]), [address] [place] [address]. Testing for HPV was performed using the Doron JENN 6800 system. The presence of HPV in the female genital tract is associated with a number of diseases, including cervical carcinoma. The HPV DNA high risk pool tests for HPV 31, 33, 35, 39, 45, 51, 52, 56, 58, 59, 66 and 68. The testing for HPV 16 and 18 genotypes has also been performed. A positive result indicates detection of nucleic acid sequences from one or more subtypes, whereas a negative result indicates such sequences were not detected. All professional services are performed by [facility] ([address] [place] [address], [place] [address]; ; CLIA #[id number]). The PAP Test is a screening procedure with the inherent possibility of both false negative and false positive results. Results should be interpreted in the context of historic and current clinical findings. Reliability of the PAP Test is enhanced by performing the test on a regular repetitive basis. CONTINUED ON NEXT PAGE ----- ------- Name: Bisi Chavez Age/Sex: / : 2000 Unit#: [id number] Attend Dr: MANDY ARMSTRONG CNM Re07/05/25 Status: [facility] Disch: ----- ------- SPEC : [id number] RECD: 07/06/25 STATUS: ALEXANDER CHU NUM: [id number] RALF: 07/05/25-[address] [facility] [address]: MANDY ARMSTRONG ENTERED: 07/06/25 SP TYPE: Pap [place] OROZCO DR: ORDERED: Pap Smear, PAP path review ----- ------- Signed (signature on file) Grace Jain MD 07/11/25 0949 ----- ------- END OF REPORT us Mandy Armstrong [facility] CYTOLOGY ORDERABLES F inal Result [facility] [address] [place] [phone] * POCT Urine (06/05/2025 11:17 AM EDT) Preg Test, Ur Negative Negative, Indeterminate, None Detected, Invalid, Specimen unsatisfactory for evaluation, Weakly Positive, 2+ QC Media Lot # [id number] Lot# Expiration Date [id number] Urine 06/05/2025 11:1 7 AM EDT us Kaye Davis MD POINT OF CARE BRADY T ENTER/EDIT ORDERABLES Final Result from Last 3 Months Insurance [employer] [facility] F[facility] D[facility]AL[facility] MEDICAID LIMITED ADULT DENTAL - HSN FULL (MEDICAID) Care Teams Refinery Operator Light Ends Recovery Relationship Specialty Start Date End Date Kaye Oakley MD [address] [place] [phone] PCP - General Internal Medicine 07/04/25
--- OUTSIDE RECORDS SUMMARY | 2025-07-31 10:47 | XMS_ITS | Encounter Summary ---
Author Organization [employer] Address [address] [place] [address] [address] Care Team Providers Care Battery Mechanic Name Role Phone Kaye Oakley MD Primary Care Pro vider Reason for Visit * Reason Onset Date Comments Appointment Request 01/04/2025 Encounter Details Date Type Department Care Team ([facility] st Contact Info) Description 01/04/[address] [facility] MEDICINE [address] [place] [address] Jorgito Paulson MD [address] [place] [address] Appointment Request Social History Tobacco Use Types [...] 01/04/2025 10:58 AM EDT Patient added to [facility] New Patient wait list as 01-04-2025 * Telephone Encounter - Kevin Rosen - 01/04/2025 10:33 AM EDT TC from caller requesting NEW PATIENT visit . DX : None Medical Concern: Period Concerns Insurance name : [facility] Location : No Preference. Demographic information updated Contact pt at [phone] documented in this encounter Plan of Treatment Upcoming Encounters Date Type Department Care Team (Late st Contact Info) Description 08/08/2025 9:45 AM EDT Office Visit [facility] MEDICINE [address] [place] [address] Kaye Oakley MD [address] [place] [address] 08/16/2025 3:00 PM EDT Office Visit [facility] ADULT DENTAL [address] [place] [address] Estefania Jose Miguel [address] [place] [address] 08/30/2025 2:00 PM EST Nutrition [facility] DIABETES/NTRN [address] [place], [place] [phone] Dahlia Granados, RD [address] [place] [address] 09/25/2025 9:00 AM EST Office Visit [facility] OPTOMETRY [address] [place] [address] Yolanda Bolden, OD [address] [place] [address] documented as of this encounter Visit Diagnoses Not on filedocumented in this encounter Care Teams Battery Mechanic Relationship Specialty Start Date End Date Kaye Oakley MD [address] [place] [phone] PCP - General Internal Medicine 07/04/25 documented as of this encounter
[2025-07-31 12:05] LABS: Hemoglobin A1C 126.4041 umol/L
[2025-07-31 12:06] LABS: Hematocrit 39.1 % (37.0-47.0); Hemoglobin 13.1 g/dl (12.0-16.0); Mean Corpuscular HGB Conc 33.5 g/dl (31.0-35.0); Mean Corpuscular Hemoglobin 29.5 pg (27.0-33.0); Mean Corpuscular Volume 88.1 fL (80.0-98.0); NRBC Abs Auto 0.000 X10*3/uL (0.0-0.012); NRBC Pct Auto 0.0 /100WBC (0.0-0.2); Platelet Count 204 X10*3/uL (160-400); Red Blood Count 4.44 X10*6/uL (4.20-5.50); White Blood Count 5.0 X10*3/uL (4.8-10.8)
[2025-07-31 12:35] LABS: Alanine Aminotransferase 19 U/L (0-31); Albumin Level 4.5 g/dL (3.5-5.0); Alkaline Phosphatase 78 U/L (39-117); Anion Gap 9 (12-20); Aspartate Amino Transferase 22 U/L (5-31); Blood Urea Nitrogen 11 mg/dL (9-16); Calcium 9.1 mg/dL (8.4-10.2); Carbon Dioxide 27 mmol/L (22-29); Chloride 108 mmol/L (96-108); Cholesterol 152 mg/dL (<200); Estimated Glomerular Filt Rate > 60; HDL Cholesterol 42 mg/dL (>40); Potassium 4.3 mmol/L (3.3-5.1); Sodium 140 mmol/L (135-145); Total Protein 7.2 g/dL (6.5-8.0); Triglycerides 115 mg/dL (<150)
[2025-07-31 13:10] LABS: CT PCR Urine NOT DETECTED (Not Detect.); NG PCR Urine NOT DETECTED (Not Detect.)
[2025-08-01 03:14] LABS: Syphilis Screen Nonreactive (Nonreactive)
[2025-08-01 03:55] LABS: HBS Num1 14.26 mIU/mL (0-7.99); HBc Num1 0.07 S/CO (0.00-0.79); HBsAGNum1 0.29 S/CO (0.00-0.99); HIV Num 1 0.05 S/CO (0.00-0.99); Hepatitis B Surface Antigen Negative (Negative); ~HepC Num1 0.08 S/CO (0.00-0.79); ~Hepatitis B Surface Antibody REACTIVE (Nonreactive); ~Hepatitis C Antibody Nonreactive (Nonreactive)
[2025-08-02 21:33] LABS: TS Negative Control Passed; TS Panel A 0; TS Panel B 0; TS Positive Control Passed; TSpotTB Negative (Negative)
== END 2025-07-31 09:39 | disposition home or self-care (01) ==
LOC: HO.HHCL 09:38
PROVIDERS: PCP Student in an Organized Health Care Education/Training Program; Visit Provider Student in an Organized Health Care Education/Training Program
DX: Z00.00 Encounter for general adult medical examination without abnormal findings (principal); Z20.2 Contact with and (suspected) exposure to infections with a predominantly sexual mode of transmission; Z11.4 Encounter for screening for human immunodeficiency virus [HIV]; Z11.1 Encounter for screening for respiratory tuberculosis; Z11.59 Encounter for screening for other viral diseases
CPT/HCPCS: 80053; 80061; 82306; 83036; 84443; 85027; 86481; 86704; 86706; 86780; 86803; 87340; 87389; 87491; 87591